=== PATIENT | female | born 1970 | race Caucasian/White ===

== ENCOUNTER 2023-07-02 17:51 | Emergency (ER) | payer OTHER ==
[~2023-07-02] VITALS: Ht 160 cm; Wt 91.0 kg
[2023-07-02 17:56] VITALS: BP 158/88; PULSE 97; RESP 18; TEMP 99.1; O2SAT 98
[2023-07-02] MEDS ORDERED: CLINDAMYCIN 600 MG in DEXTROSE 5% WATER 50 ML IV ONE (18:30)
[2023-07-02] MEDS: SODIUM CHLORIDE 0.9% 1,000 ML IV ONE (19:09)
[2023-07-02] MEDS: HYDROCODONE/ACETAMINOPHEN 5/325MG TABLET PO ONE (19:17)
[2023-07-02 19:18] LABS: CLARITY URINE CLEAR (CLEAR); COLOR URINE YELLOW (YELLOW); GLUCOSE URINE NEGATIVE (NEGATIVE); KETONES URINE NEGATIVE (NEGATIVE); LEUKOCYTE ESTERASE URINE 1+ (NEGATIVE); NITRITE URINE NEGATIVE (NEGATIVE); OCCULT BLOOD URINE NEGATIVE (NEGATIVE); PH URINE 5.5 (4.5-8.0); PROTEIN URINE NEGATIVE (NEGATIVE); SPECIFIC GRAVITY URINE 1.025 (1.005-1.030)
[2023-07-02 19:28] LABS: BACTERIA URINE NONE SEEN; RBC URINE 0-2 /hpf (0-2); SQUAMOUS EPITHELIAL CELL URINE 1+ /lpf (RARE/1+); WBC URINE 0-2 /hpf (0-2)
[2023-07-02 19:33] LABS: BASOPHILS % 0.3 % (0.0-2.0); EOSINOPHILS % 2.5 % (0.0-5.0); HEMATOCRIT. 38.4 % (36.0-48.0); HEMOGLOBIN. 12.5 g/dL (12.0-16.0); LYMPHOCYTES % 28.7 % (20.0-50.0); MEAN CORPUSCULAR HEMOGLOBIN 28.9 pg (28.0-32.0); MEAN CORPUSCULAR HGB CONC 32.7 g/dL (31.0-37.0); MEAN CORPUSCULAR VOLUME 88.4 fL (81.0-99.0); MONOCYTES % 10.2 % (2.0-8.0); NEUTROPHILS % 58.3 % (40.0-76.0); PLATELET 283 x1000/uL (130-400); RED BLOOD CELL COUNT 4.34 mill/uL (4.2-5.4); RED CELL DISTRIBUTION WIDTH 13.9 % (11.6-14.6); WHITE BLOOD COUNT 12.2 x1000/uL (4.5-11.0)
[2023-07-02] MEDS: CLINDAMYCIN 600MG PREMIX 50 ML IV NR (19:44)
[2023-07-02 19:45] LABS: ALANINE AMINOTRANSFERASE 59 IU/L (10-49); ALBUMIN 4.5 g/dL (3.2-4.8); ASPARTATE AMINOTRANSFERASE 21 IU/L (<34); BILIRUBIN TOTAL 0.5 mg/dL (0.1-1.0); CALCIUM 9.4 mg/dL (8.7-10.4); CARBON DIOXIDE 29 mEq/L (21-32); CHLORIDE 103 mEq/L (98-107); CREATININE 0.8 mg/dL (0.6-1.0); GLUCOSE 101 mg/dL (70-105); PROTEIN TOTAL 7.9 g/dL (6.0-8.3); SODIUM 136 mEq/L (136-145); UREA NITROGEN BLOOD 15 mg/dL (9-23)
[2023-07-02] MEDS ORDERED: CLIN-194 MT (21:48)
[2023-07-02] MEDS ORDERED: HYDR-4001 MT (21:48)
[2023-07-02] MEDS ORDERED: IBUP-1525 MT (21:48)
== END 2023-07-02 21:59 | disposition home or self-care (01) ==
LOC: ER 17:51
DX: H60.591 Other noninfective acute otitis externa, right ear (principal)
CPT/HCPCS: 99284; 96365; 96361; 80053; 81003; 83605; 85025; 36415; J3490; J7030; J7060